=== PATIENT | male | born 1965 ===

== ENCOUNTER 2019-05-05 18:05 | Emergency (ER) ==
[~2019-05-05] VITALS: Ht 170.2 cm; Wt 108.0 kg
== END 2019-05-05 20:27 | disposition home or self-care (01) ==
LOC: ED 18:05
DX: E11.621 Type 2 diabetes mellitus with foot ulcer (principal); L97.529 Non-pressure chronic ulcer of other part of left foot with unspecified severity; E11.9 Type 2 diabetes mellitus without complications; I10 Essential (primary) hypertension; E78.5 Hyperlipidemia, unspecified; F32.9 Major depressive disorder, single episode, unspecified
CPT/HCPCS: 99283